=== PATIENT | male | born 1965 | race Caucasian/White ===

== ENCOUNTER → 2019-02-20 | Outpatient (CLI) | payer BC, SELFPAY | END | disposition home or self-care (01) | LOC: LABSPEC 11:38 | PROVIDERS: Family Provider Family Medicine; PCP Family Medicine; Visit Provider Otolaryngology | DX: J02.9 Acute pharyngitis, unspecified (principal) | CPT/HCPCS: 87070 ==

== ENCOUNTER → 2019-05-01 | Outpatient (CLI) | payer BC, SELFPAY ==
[2017-05-02 20:57] VITALS: BMI 24.3
== END | disposition home or self-care (01) ==
LOC: LABSPEC 09:31
PROVIDERS: Family Provider Family Medicine; PCP Family Medicine; Referring Provider Family Medicine; Visit Provider Family Medicine
DX: K11.20 Sialoadenitis, unspecified (principal)
CPT/HCPCS: 87070

== ENCOUNTER 2020-11-28 16:51 | Outpatient (RCR) | payer BC, SELFPAY ==
[2017-05-02 20:57] VITALS: BMI 24.3
[2020-11-28] MEDS: COVID-19 VACC, MRNA(PFIZER)/PF 30 MCG/0.3 ML SYRINGE IM (17:36)
[2020-12-19] MEDS: COVID-19 VACC, MRNA(PFIZER)/PF 30 MCG/0.3 ML SYRINGE IM (17:27)
== END 2020-11-28 23:59 ==
LOC: IMMUN 16:51
PROVIDERS: PCP Family Medicine; Referring Provider Family Medicine; Visit Provider Family Medicine
DX: Z23 Encounter for immunization (principal)
CPT/HCPCS: 0001A; 0002A; 91300

== ENCOUNTER → 2023-04-11 | Outpatient (CLI) | payer BC, SELFPAY | END | disposition home or self-care (01) | LOC: LAB 09:06 | PROVIDERS: PCP Family Medicine; Referring Provider Otolaryngology; Visit Provider Otolaryngology | DX: M27.9 Disease of jaws, unspecified (principal) ==

== ENCOUNTER → 2023-04-18 | Outpatient (CLI) | payer SELFPAY, BC ==
--- NOTE | 2023-04-18 11:56 | US_ITS ---
EXAM: US SOFT TISSUES OF THE NECK CLINICAL INDICATION: NEOPLASM OF UNCERTAIN BEHAVIOR OF THE SUBMANDIBULA TECHNIQUE: Real-time ultrasound scan of the soft tissues of the neck with image documentation. COMPARISON: No relevant prior studies available. FINDINGS: SOFT TISSUES: LEFT SUBMANDIBULAR GLAND: Homogeneous, 2.5 cm x 2.7 cm x 0.8 cm. RIGHT SUBMANDIBULAR GLAND: 2.4 cm x 2.8 cm x 0.6 cm. Homogeneous. RIGHT SUBMANDIBULAR REGION NODES:. No fluid collection or suspicious mass. 0.8 cm x 0.4 cm x 0.4 cm lymph node with fatty hilum. Additional small adjacent benign-appearing lymph node, 4 mm maximum diameter. US/Head/Neck Soft Tissue IMPRESSION: Exam was limited to the region of interest. Symmetric and homogeneous submandibular glands. Small right submandibular region lymph nodes, not pathologic by size or appearance. No suspicious fluid collection or mass. Electronically Signed: Milla Wilburn MD at 9:30 EDT ,
== END | disposition home or self-care (01) ==
PROVIDERS: PCP Family Medicine; Referring Provider Otolaryngology; Visit Provider Otolaryngology
DX: D37.032 Neoplasm of uncertain behavior of the submandibular salivary glands (principal)
CPT/HCPCS: 76536

== ENCOUNTER 2023-10-05 12:18 | Emergency (ER) | payer BC, SELFPAY ==
[2023-10-05 12:18] VITALS: BP 130/76; PULSE 68; RESP 16; TEMP 36; O2SAT 100; BMI 29.3
--- OUTSIDE RECORDS SUMMARY | 2023-10-05 12:33 | XMS RPT_ITS | CCD ---
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 Unavailable Unavailable Bittenbender, Peter Unavailable Unavailable Zografakis, Charly Unavailable Unavailable [place], Haris Unavailable Unavailable Bittenbender, Peter Unavailable Unavailable Zografakis, Charly Unavailable Unavailable [place], Haris Unavailable Unavailable Bittenbender, Peter Unavailable Unavailable Zografakis, Charly Unavailable Unavailable Marge, Hrais Unavailable Unavailable Bittenbender, Peter Unavailable Unavailable [place], Haris Unavailable Unavailable Bittenbender, Peter Unavailable Unavailable Elizabeth, Elizabeth Unavailable Unavailable Zografakis, Charly Unavailable Unavailable Marge, Haris Unavailable Unavailable Bittenbender, Peter Unavailable Unavailable [facility] Unavailable Unavailable [facility] Unavailable Unavailable MARGE FINLEY Unavailable Unavailable Haris Tello MD Primary Care Provider Tushar EDWARDS MD, Marge Unavailable Haris Tello MD Primary Care Provider Tushar EDWARDS MD, Marge Unavailable HARIS TELLO Referring Unavailable HARIS TELLO Primary Care Unavailable HARIS TELLO Attending Unavailable HARIS TELLO Primary Care Unavailable Medications Completed/Discontinued Medications Medication Drug Class(es) Dates Sig (Normalized) Sig (Original) cholecalciferol 0.025 mg oral capsule (3 sources) Vitamin D Start: 04-24-2018 take 1 capsule by mouth once daily Cholecalciferol, Vitamin D3, (VITAMIN D) 1,000 unit cap Take 1 capsule by mouth once daily. 0 04/24/2018 Active Problems Active Problems Problem Classification Problem Date Documented Da te Episodic/Chronic Cancer of head and neck (10 sources) Malignant neoplasm of head, face and neck; Translations: [Malignant neoplasm of tongue, unspecified] Onset: 02-25-2017 02-25-2017 Chronic Deficiency and other anemia (2 sources) Aplastic anemia, unspecified; Translations: [Aplastic anemia, unspecified] Onset: 08-05-2017 Chronic Esophageal disorders (2 sources) Gastro-esophageal reflux disease without esophagitis; Translations: [Gastro-esophageal reflux disease without esophagitis] Onset: 07-31-2017 Chronic Gastroduodenal ulcer (2 sources) 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; Translations: [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] Onset: 07-31-2017 Chronic Gout and other crystal arthropathies (5 sources) Gout, unspecified; Translations: [Gout] Onset: 08-05-2017 12-31-2010 Chronic Hepatitis (2 sources) Nonalcoholic steatohepatitis (KENDALL); Translations: [Nonalcoholic steatohepatitis (KENDALL)] Onset: 06-17-2017 Chronic Hyperplasia of prostate (3 sources) Benign prostatic hyperplasia; Translations: [Benign prostatic hyperplasia without lower urinary tract symptoms] Onset: 04-06-2015 04-06-2015 Chronic Immunizations and screening for infectious disease (6 sources) Patient encounter status; Translations: [Encounter for immunization] Onset: 08-07-2022 Episodic Nausea and vomiting (2 sources) Vomiting, unspecified; Translations: [Vomiting, unspecified] Onset: 07-03-2017 Nutritional deficiencies (2 sources) Unspecified severe protein-calorie malnutrition; Translations: [Unspecified severe protein-calorie malnutrition] Onset: 06-17-2017 Chronic Osteoarthritis (2 sources) Unspecified osteoarthritis, unspecified site; Translations: [Unspecified osteoarthritis, unspecified site] Onset: 08-05-2017 Chronic Other gastrointestinal disorders (6 sources) Gastrostomy status; Translations: [Intestinal bypass and anastomosis status] Onset: 07-03-2017 Chronic Other gastrointestinal disorders (3 sources) Malabsorption - iron; Translations: [Intestinal malabsorption, unspecified] Onset: 04-28-2018 04-28-2018 Chronic Other gastrointestinal disorders (2 sources) Other ascites; Translations: [Other ascites] Onset: 06-17-2017 Other injuries and conditions due to external causes (2 sources) Foreign body in stomach, initial encounter; Translations: [Foreign body in stomach, initial encounter] Onset: 07-03-2017 Other liver diseases (2 sources) Liver disease, unspecified; Translations: [Liver disease, unspecified] Onset: 08-05-2017 Chronic Other nutritional; endocrine; and metabolic disorders (2 sources) Obesity, unspecified; Translations: [Obesity, unspecified] Onset: 08-05-2017 Chronic Other screening for suspected conditions (not mental disorders or infectious disease) (1 source) Encounter for screening for diabetes mellitus; Translations: [Screening for diabetes mellitus] Onset: 08-07-2022 Episodic Unclassified (2 sources) Unspecified intestinal obstruction, unspecified as to partial versus complete obstruction; Translations: [Unsp intestnl obst, unsp as to partial versus complete obst] Onset: 06-17-2017 Unclassified (1 source) Unknown / UNK(Unknown) Onset: 07-08-2017 Past or Other Problems Problem Classification Problem Date Documented Da te Episodic/Chronic Abdominal pain (2 sources) Epigastric pain; Translations: [Epigastric pain] Onset: 08-05-2017 Episodic Acquired foot deformities (3 sources) Acquired cavovarus deformity of foot; Translations: [Other acquired deformities of unspecified foot] Onset: 02-20-2011 02-20-2011 Episodic Calculus of urinary tract (3 sources) Obstruction of pelviureteric junction; Translations: [Calculus of ureter] Onset: 04-18-2015 04-18-2015 Episodic Cancer of other GI organs; peritoneum (2 sources) Personal history of malignant neoplasm of other digestive organs; Translations: [Personal history of malignant neoplasm of digestive organs] Onset: 07-03-2017 Episodic Cancer; other and unspecified primary (2 sources) Personal history of malignant neoplasm of other organs and systems; Translations: [Personal history of malignant neoplasm of organs and systems] Onset: 08-05-2017 Episodic Complications of surgical procedures or medical care (2 sources) Other complications of other bariatric procedure; Translations: [Other complications of other bariatric procedure] Onset: 07-31-2017 Episodic Deficiency and other anemia (4 sources) Iron deficiency anemia; Translations: [Iron deficiency anemia, unspecified] Onset: 04-28-2018 04-28-2018 Episodic Deficiency and other anemia (1 source) Iron deficiency anemia, unspecified; Translations: [Iron deficiency anemia, unspecified iron deficiency anemia type] Onset: 04-28-2018 Episodic Diseases of mouth; excluding dental (3 sources) Radiation-induced xerostomia; Translations: [Disturbances of salivary secretion] Onset: 01-10-2021 01-10-2021 Episodic Disorders of teeth and jaw (3 sources) Sensitive dentin; Translations: [Other specified diseases of hard tissues of teeth] Onset: 01-10-2021 01-10-2021 Episodic Genitourinary symptoms and ill-defined conditions (3 sources) Blood in urine; Translations: [Hematuria, unspecified] Onset: 04-06-2015 04-09-2018 Episodic Nausea and vomiting (2 sources) Nausea with vomiting, unspecified; Translations: [Nausea with vomiting, unspecified] Onset: 07-03-2017 Episodic Nutritional deficiencies (4 sources) Deficiency of multiple nutrient elements; Translations: [Deficiency of nutrient element, unspecified] Onset: 05-08-2017 Episodic Other aftercare (2 sources) 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; Translations: [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] Onset: 08-05-2017 Episodic Other connective tissue disease (3 sources) Enthesopathy; Translations: [Enthesopathy, unspecified] Onset: 03-01-2010 03-01-2010 Episodic Other gastrointestinal disorders (4 sources) Dysphagia, unspecified; Translations: [Bariatric surgery status] Onset: 07-31-2017 Episodic Other gastrointestinal disorders (4 sources) History of bypass of stomach; Translations: [Bariatric surgery status] Onset: 04-09-2018 04-09-2018 Episodic Other gastrointestinal disorders (1 source) Bariatric surgery status; Translations: [Gastric bypass status for obesity] Onset: 04-09-2018 Episodic Other non-traumatic joint disorders (3 sources) Ankle instability; Translations: [Other instability, unspecified ankle] Onset: 02-20-2011 02-20-2011 Episodic Peritonitis and intestinal abscess (2 sources) Peritonitis, unspecified; Translations: [Peritonitis, unspecified] Onset: 06-17-2017 Episodic Residual codes; unclassified (3 sources) At high risk for dental caries; Translations: [Risk for dental caries, high] Onset: 01-10-2021 01-10-2021 Episodic Sprains and strains (3 sources) Late effect of injury; Translations: [Late effect of sprain and strain without mention of tendon injury] Onset: 02-20-2011 02-20-2011 Episodic Unclassified (4 sources) Body mass index (BMI) 23.0-23.9, adult; Translations: [Body mass index (BMI) 24.0-24.9, adult] Onset: 06-17-2017 Episodic Results Test Name Value Interpretation Reference Range Facil ity Vital Signs Date Time Vital Sign Value Performing Clinician Derrick march 08-06-2022 14:54-0500 Body height 193 cm Haris Tello MD Work Phone: [facility] 08-06-2022 14:54-0500 Body weight 111.68 kg Haris Tello MD Work Phone: [facility] 08-06-2022 14:54-0500 Diastolic blood pressure 80 mm[Hg] Haris Tello MD Work Phone: [facility] 08-06-2022 14:54-0500 Heart rate 56 /min Haris Tello MD Work Phone: [facility] 08-06-2022 14:54-0500 SaO2% (BldA) [Mass fraction] 98 % Haris Tello MD Work Phone: [facility] 08-06-2022 14:54-0500 Systolic blood pressure 112 mm[Hg] Haris Tello MD Work Phone: [facility] Encounters Encounter Date Encounter Type Care Provider Facility Start: 01-14-2023 ambulatory Haris Tello MD Work Phone: [facility] Procedures Date Procedure Procedure Detail Performing Clinician Start: 08-06-2022 INFLUENZA VACCINE QUADRIVALENT 6 MO - 64 YRS IM Haris Tello MD Work Phone: Start: 03-26-2021 Colonoscopy Marge Moser MD, MD Work Phone: Start: 05-29-2017 Adult depression scr eening assessment Marge Finley MD, MD Work Phone: Plan of Treatment Date Care Activity Detail Author Start: 03-26-2031 Colonoscopy COLONOSCOPY [facility] Start: 03-26-2031 COLORECTAL CANCER SCREENING COLORECTAL CANCER SCREENING [facility] Start: 07-13-2029 Urine microalbumin profile [facility] Start: 08-07-2027 LIPID SCREEN LIPID SCREEN [facility] Start: 10-16-2025 LIPID SCREEN LIPID SCREEN [facility] Start: 08-07-2025 DIABETES SCREEN DIABETES SCREEN [facility] Start: 10-24-2023 DIABETES SCREEN DIABETES SCREEN [facility] Start: 09-15-2022 DEPRESSION ASSESSMENT DEPRESSION ASSESSMENT [facility] Start: 08-06-2022 End: 10-06-2022 CBC W Auto Differential panel - Blood CBC + DIFF Lab Routine Gastric bypass status for obesity Well adult exam Expected: 08/06/2022, Expires: 10/06/2022 [facility] Work Phone: Immunizations Immunization Date Immunization Notes Care Provider Fa brodie 08-06-2022 influenza, injectabl e, quadrivalent, contains preservative Haris Tello MD Work Phone: [facility] 07-03-2021 Influenza, injectabl e, Madin Beckley Canine Kidney, preservative free, quadrivalent Haris Tello MD Work Phone: [facility] 07-09-2020 influenza, injectabl e, quadrivalent, preservative free Haris Tello MD Work Phone: [facility] 10-12-2019 zoster vaccine recombinant Haris Tello MD Work Phone: [facility] 10-12-2019 zoster vaccine, live Marge Finley MD, MD Work Phone: [facility] Work Phone: 07-13-2019 influenza, injectabl e, quadrivalent, contains preservative Marge Finley MD, MD Work Phone: [facility] Work Phone: 07-13-2019 tetanus toxoid, redu jossie diphtheria toxoid, and acellular pertussis vaccine, adsorbed Marge Finley MD, MD Work Phone: [facility] Work Phone: 04-09-2019 zoster vaccine recombinant Haris Tello MD Work Phone: [facility] 06-24-2018 influenza, injectabl e, quadrivalent, preservative free Marge Finley MD, MD Work Phone: [facility] 04-06-2016 tetanus toxoid, redu jossie diphtheria toxoid, and acellular pertussis vaccine, adsorbed Haris Tello MD Work Phone: [facility] 07-15-2013 influenza virus vaccine, unspecified formulation Marge Finley MD, MD Work Phone: [facility] 06-17-2012 influenza virus vaccine, unspecified formulation Marge Finley MD, MD Work Phone: [facility] 07-13-2010 influenza virus vaccine, unspecified formulation Marge Finley MD, MD Work Phone: [facility] Work Phone: 02-04-2007 tetanus and diphther ia toxoids, adsorbed, preservative free, for adult use (2 Lf of tetanus toxoid and 2 Lf of diphtheria toxoid) Marge Finley MD, MD Work Phone: [facility] Work Phone: Payers Date Payer Category Payer Unknown 2019 Unknown [id number] 2019 Unknown NAI JOVEL PPO [id number] 2019-Present [phone] [id number] [place] [address] PPO [id number] Social History Date Type Detail Facility Tobacco smoking status NHIS Never smoked tobacco [facility] Start: 03-26-2021 End: 08-06-2022 Alcohol intake Current non-drinker of alcohol (finding) [facility] Start: 1965 Sex Assigned At Not on file [facility] Start: 07-30-2022 History SDOH Alcohol Frequency 4 [facility] Start: 07-30-2022 History SDOH Alcohol Std Drinks 1 [facility] Start: 07-30-2022 History SDOH Social Connections Phone 5 [facility] Start: 07-30-2022 History SDOH Social Connections Bahai 2 [facility] Start: 07-30-2022 History SDOH Social Connections Meetings 3 [facility] Start: 07-30-2022 History SDOH Physica l Activity DPW 7 [facility] Start: 07-30-2022 History SDOH Physica l Activity MPS 6 [facility] Start: 07-27-2022 End: 08-06-2022 Exposure to SARS-CoV-2 (event) Not sure [facility] Medical Equipment Procedure Code Equipment Code Equipment Origin al Text Equipment Identifier Dates Stent Uret 6fr 2 6cm W/O Gw Inl - [id number] Start: 04-18-2015 Note 01-14-2023 Telephone Encounter - Jacey Ken Ma - 01/14/2023 2:58 PM EDT Note Date & Type Note Facility 01-14-2023 Miscellaneous Notes Formattin g of this note might be different from the original. Letter printed and ready for pcp to sign Please see where patient would like mailed Jacey Ken Ma documented in this encounter [facility] Progress note 08-06-2022 Note Date & Type Note Facility 08-06-2022 Note HNO ID: [id number] Author: Haris Tello MD Service: ? Author Type: Physician Type: Progress Notes Filed: 08/06/2022 5:33 PM Note Text: Patient presents with: Physical HPI: Patient presents today for office visit for physical and labs. No concerns today. Gets recurrent sores in his nose. Sees ENT and now five years post cancer. He now has to see them annually. He has been released from oncology. Getting dental work due to radiation changes on his teeth. MEDICATIONS: Current Outpatient Medications Medication Sig pediatric multivitamins with iron chewable tablet Take 1 tablet by mouth once daily. Cholecalciferol, Vitamin D3, (VITAMIN D) 1,000 unit cap Take 1 capsule by mouth once daily. No current facility-administered medications for this visit. 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 PAST SURGICAL HISTORY Procedure Laterality Date COLONOSCOPY FLX DX W/COLLJ SPEC WHEN PFRMD 03/26/2021 GASTRECTOMY,PART DISTAL;W/GASTRODUODENOSTO states partial HERNIA REPAIR HX LAPAROSCOPIC GASTRIC BYPASS 05/01/2013 Dr Cook [facility] PAST SURGICAL HISTORY OF right leg hardware PAST SURGICAL HISTORY OF 01/20/2017 Biopsy right tonsil SKIN GRAFT PROCEDURE TONSILLECTOMY HX Left 01/20/2017 FAMILY HISTORY Problem Relation Age of Onset other (lung cancer) Father (electric welder) Diabetes Mother other (CHF) Mother Colon Cancer Other none Prostate Cancer Other none Social History Tobacco Use Smoking status: Never Smokeless tobacco: Never Substance Use Topics Alcohol use: No Drug use: No Reviewed current medications, allergies, past medical history, surgical history, family history and social history today. REVIEW OF SYSTEMS HEENT: Negative for frequent or significant headaches, No changes in hearing or vision, no nose bleeds or other nasal problems NECK: Negative for lumps, goiter, pain and significant neck swelling RESPIRATORY: Negative for cough, hemoptysis, wheezing, COPD, dyspnea or shortness of breath CARDIOVASCULAR: Negative for chest pain, leg swelling, hypertension, CHF or palpitations GI: No nausea, vomiting, or diarrhea : No history of dysuria, frequency or incontinence SKIN: Negative for lesions, rash, and itching All other reviewed and negative other than HPI. HEALTH MAINTENANCE: Reviewed health maintenance issues today and recommended the following in detail. HEPATITIS C SCREENING Never done HIV SCREENING Never done SHINGRIX VACCINE-done. PROSTATE CANCER SCREENING DISCUSSION -Had discussion with patient regarding risks and benefits of prostate screening. Allowed them to decide if they wished to proceed with screening including HA and PSA. DEPRESSION ASSESSMENT Never done COVID-19 VACCINE(4 - Booster for Pfizer series) due on 10/15/2021 INFLUENZA(1) due on 05/16/2022 VITALS: BP 112/80 Pulse (!) 56 Ht 193 cm (6' 4 ) Wt 111.7 kg (246 lb 3.2 oz) SpO2 98% BMI 29.97 kg/m? Last 4 Encounter Wt Readings: Date: Wt: 10/20/2020 108 kg (238 lb) 07/01/2018 89.1 kg (196 lb 8 oz) 06/15/2018 88 kg (194 lb) 04/09/2018 87.5 kg (193 lb) PHYSICAL EXAMINATION: General appearance: Well appearing, alert, in no acute distress, well-hydrated, well nourished. Skin: Skin color, texture, turgor normal, no suspicious rashes or lesions Head: Normocephalic, no masses, lesions, tenderness or abnormalities Neck: Supple, no adenopathy; thyroid symmetric, normal size, no bruits Lungs: Lungs clear to auscultation. No wheezing, rhonchi, rales Heart: RRR without murmur, gallop, or rubs. No ectopy Abdomen: Normal abdominal exam, Abdomen soft, non-tender. Bowel sounds normal. No masses, organomegaly Extremities: No deformities, edema, skin discoloration, clubbing or cyanosis. Good capillary refill. Musculoskeletal: No joint swelling, deformity, or tenderness Peripheral pulses: Normal Neuro: Negative. ASSESSMENT/PLAN: 1. Well adult exam - ICD9: V70.0, ICD10: Z00.00 (primary diagnosis) - Counseled on healthy diet and regular exercise - LIPID PANEL BASIC - COMP METABOLIC PANEL - CBC + DIFF 2. Encounter for immunization - ICD9: V03.89, ICD10: Z23 - INFLUENZA VACCINE QUADRIVALENT 6 MO - 64 YRS IM 3. Special screening examination for viral disease - ICD9: V73.99, ICD10: Z11.59 - HEP C AB IA W/CONF SCRN 4. Screening for HIV (human immunodeficiency virus) - ICD9: V73.89, ICD10: Z11.4 - HIV 1 2 COMBO(AG/AB),WITH REFLEX TO DIFFERENTIATION 5. 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 Gastric bypass status for obesity - ICD9: V45.86, ICD10: Z98.84 - check (more content not included)... [facility] History of Present illness Narrative 08-06-2022 Haris Tello MD - 08/06/2022 2:55 PM EST Note Date & Type Note Facility 08-06-2022 History of Presen t illness Narrative Patient presents with: Physical HPI: Patient presents today for office visit for physical and labs. No concerns today. Gets recurrent sores in his nose. Sees ENT and now five years post cancer. He now has to see them annually. He has been released from oncology. Getting dental work due to radiation changes on his teeth. MEDICATIONS: Current Outpatient Medications Medication Sig pediatric multivitamins with iron chewable tablet Take 1 tablet by mouth once daily. Cholecalciferol, Vitamin D3, (VITAMIN D) 1,000 unit cap Take 1 capsule by mouth once daily. No current facility-administered medications for this visit. 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 PAST SURGICAL HISTORY Procedure Laterality Date COLONOSCOPY FLX DX W/COLLJ SPEC WHEN PFRMD 03/26/2021 GASTRECTOMY,PART DISTAL;W/GASTRODUODENOSTO states partial HERNIA REPAIR HX LAPAROSCOPIC GASTRIC BYPASS 05/01/2013 Dr Cook [facility] PAST SURGICAL HISTORY OF right leg hardware PAST SURGICAL HISTORY OF 01/20/2017 Biopsy right tonsil SKIN GRAFT PROCEDURE TONSILLECTOMY HX Left 01/20/2017 FAMILY HISTORY Problem Relation Age of Onset other (lung cancer) Father (electric welder) Diabetes Mother other (CHF) Mother Colon Cancer Other none Prostate Cancer Other none Social History Tobacco Use Smoking status: Never Smokeless tobacco: Never Substance Use Topics Alcohol use: No Drug use: No Reviewed current medications, allergies, past medical history, surgical history, family history and social history today. REVIEW OF SYSTEMS HEENT: Negative for frequent or significant headaches, No changes in hearing or vision, no nose bleeds or other nasal problems NECK: Negative for lumps, goiter, pain and significant neck swelling RESPIRATORY: Negative for cough, hemoptysis, wheezing, COPD, dyspnea or shortness of breath CARDIOVASCULAR: Negative for chest pain, leg swelling, hypertension, CHF or palpitations GI: No nausea, vomiting, or diarrhea : No history of dysuria, frequency or incontinence SKIN: Negative for lesions, rash, and itching All other reviewed and negative other than HPI. HEALTH MAINTENANCE: Reviewed health maintenance issues today and recommended the following in detail. HEPATITIS C SCREENING Never done HIV SCREENING Never done SHINGRIX VACCINE-done. PROSTATE CANCER SCREENING DISCUSSION -Had discussion with patient regarding risks and benefits of prostate screening. Allowed them to decide if they wished to proceed with screening including HA and PSA. DEPRESSION ASSESSMENT Never done COVID-19 VACCINE(4 - Booster for Pfizer series) due on 10/15/2021 INFLUENZA(1) due on 05/16/2022 VITALS: BP 112/80 Pulse (!) 56 Ht 193 cm (6' 4 ) Wt 111.7 kg (246 lb 3.2 oz) SpO2 98% BMI 29.97 kg/m Last 4 Encounter Wt Readings: Date: Wt: 10/20/2020 108 kg (238 lb) 07/01/2018 89.1 kg (196 lb 8 oz) 06/15/2018 88 kg (194 lb) 04/09/2018 87.5 kg (193 lb) PHYSICAL EXAMINATION: General appearance: Well appearing, alert, in no acute distress, well-hydrated, well nourished. Skin: Skin color, texture, turgor normal, no suspicious rashes or lesions Head: Normocephalic, no masses, lesions, tenderness or abnormalities Neck: Supple, no adenopathy; thyroid symmetric, normal size, no bruits Lungs: Lungs clear to auscultation. No wheezing, rhonchi, rales Heart: RRR without murmur, gallop, or rubs. No ectopy Abdomen: Normal abdominal exam, Abdomen soft, non-tender. Bowel sounds normal. No masses, organomegaly Extremities: No deformities, edema, skin discoloration, clubbing or cyanosis. Good capillary refill. Musculoskeletal: No joint swelling, deformity, or tenderness Peripheral pulses: Normal Neuro: Negative. ASSESSMENT/PLAN: 1. Well adult exam - ICD9: V70.0, ICD10: Z00.00 (primary diagnosis) - Counseled on healthy diet and regular exercise - LIPID PANEL BASIC - COMP METABOLIC PANEL - CBC + DIFF 2. Encounter for immunization - ICD9: V03.89, ICD10: Z23 - INFLUENZA VACCINE QUADRIVALENT 6 MO - 64 YRS IM 3. Special screening examination for viral disease - ICD9: V73.99, ICD10: Z11.59 - HEP C AB IA W/CONF SCRN 4. Screening for HIV (human immunodeficiency virus) - ICD9: V73.89, ICD10: Z11.4 - HIV 1 2 COMBO(AG/AB),WITH REFLEX TO DIFFERENTIATION 5. 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 Gastric bypass status for obesity - ICD9: V45.86, ICD10: Z98.84 - check labs. - LIPID PANEL BASIC - COMP METABOLIC PANEL - CBC + DIFF - HGB A1C - VITAMIN B12 BLOOD - FOLATE SERUM - IRON + TIBC - VITAMIN B1 (THIAMINE), WHOLE BLOOD 7. Iron deficiency anemia, unspecified iron deficiency anemia type - ICD9: 280.9, ICD10: D50.9 - IRON + TIBC 8. Screening for diabetes mellitus - ICD9: V77.1, ICD10: Z13.1 -A1c Haris Tello MD RTO in one year. documented in this encounter [facility] Note 01-03-2022 Telephone Encounter - Elif Gant RN - 01/03/2022 10:02 AM EDT Note Date & Type Note Facility 01-03-2022 Miscellaneous Notes Copy of completion note mailed to pt per his request. documented in this encounter [facility] History of Past illness Narrative 01-09-2010 Note Date & Type Note Facility documented as of this encounter (statuses as of 01/03/2022) [facility] History of Past illness Narrative 01-09-2010 Note Date & Type Note Facility documented as of this encounter (statuses as of 08/06/2022) [facility] History of Past illness Narrative 01-09-2010 Note Date & Type Note Facility documented as of this encounter (statuses as of 01/15/2023) [facility] Evaluation note Note Date & Type Note Facility documented in this encounter [facility] Summary Purpose Family History No Family History Records FoundNo Family History Records FoundNo Family History Records FoundNo Family History Records Found Advance Directives Documents on File Type Date Recorded Patient Mri Manager Expl anation Advance Directive(s) 03/26/2021 8:04 AM Advance Directive(s) 01/10/2021 12:35 PM Additional Source Comments (unrecognized sect ion and content) No Status Records FoundNo Status Records FoundNo Status Records FoundNo Status Records Found INFORMATION SOURCE (unrecogn ized section and content) DATE CREATED AUTHOR AUTHOR'S ORGANIZ ATION 03/13/2018 [facility] DATE CREATED AUTHOR AUTHOR'S ORGANIZ ATION 03/13/2018 [facility] DATE CREATED AUTHOR AUTHOR'S ORGANIZ ATION 08/12/2022 [facility] Source Comments (unrecognize d section and content) In the event this informatio n is protected by the Federal Confidentiality of Alcohol and Drug Abuse Patient Records regulations: The Federal rules restrict any use of the information to criminally investigate or prosecute any alcohol or drug abuse patient.[facility] the event this information is protected by the Federal Confidentiality of Alcohol and Drug Abuse Patient Records regulations: The Federal rules restrict any use of the information to criminally investigate or prosecute any alcohol or drug abuse patient.[facility] the event this information is protected by the Federal Confidentiality of Alcohol and Drug Abuse Patient Records regulations: The Federal rules restrict any use of the information to criminally investigate or prosecute any alcohol or drug abuse patient.[facility] Care Teams (unrecognized sec tion and content) 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 Start Date End Date Haris Tello MD [address], [place] [phone] PCP - General Family Medicine 06/17/12 Marge Finley MD, [address], [place] [id number] Physician Radiation Oncology 01/31/17 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 This clinical summary was aggregated from multiple sources. Caution should be exercised in using it in the provision of clinical care. This summary normalizes information from multiple sources, and as a consequence, information in this document may materially change the coding, format and clinical context of patient data. In addition, data may be omitted in some cases. CLINICAL DECISIONS SHOULD BE BASED ON THE PRIMARY CLINICAL RECORDS. [employer] [facility]. provides no warranty or guarantee of the accuracy or completeness of information in this document.
--- NOTE | 2023-10-05 12:34 | EX.ED.GENINJ ---
HPI <FARRAH Costello - Last Filed: 10/05/23 16:22> History of Present Illness Chief Complaint: Laceration Narrative Narrative: Is presenting today due to a laceration to his right thumb that he got this afternoon. He reports that he was trying to get a utility knife out of its package and the knife accidentally cut him. Tetanus is not up-to-date. He is not on any blood thinners. He is right-handed. He denies any other injury. PFSH <FARRAH Costello - Last Filed: 10/05/23 16:22> PFSH Home Medications acetaminophen 650 mg/20.3 mL oral solution 650 mg G-tube Q4H PRN PRN Pain 05/02/17 [History Last Taken Unknown] morphine concentrate 100 mg/5 mL (20 mg/mL) oral solution 0.5 - 1 ml G-tube Q4H PRN PRN Pain 05/02/17 [History Last Taken Unknown] esomeprazole magnesium 40 mg granules delayed release for susp (Nexium Packet) 40 mg PO .DAILY ##30 05/03/17 [Rx Last Taken Unknown] oxycodone 20 mg/mL oral concentrate 5 - 10 mg (0.25 - 0.5 mL) PO Q4H PRN PRN Pain #10 mL 05/03/17 [Rx Last Taken Unknown] Allergy/AdvReac Type Severity Reaction Status Date / Time No Known Allergies Allergy Verified 05/02/17 20:57 Social History Smoking Status: Never smoker ROS <FARRAH Costello - Last Filed: 10/05/23 16:22> ROS ED Constitutional Constitutional ED: Denies chills or fever(s) Cardiovascular Cardiovascular: Denies chest pain Respiratory/Chest Respiratory/Chest: Denies cough or dyspnea Gastrointestinal Gastrointestinal: Denies abdominal pain, nausea or vomiting Musculoskeletal Musculoskeletal: Denies arthralgias or myalgias Integumentary Reports laceration EXAM <FARRAH Costello - Last Filed: 10/05/23 16:22> Physical Exam Const Vital Signs: 10/05/23 12:18 Temperature 96.8 F L Temperature Source Temporal Pulse Rate 68 Respiratory Rate 16 Blood Pressure 130/76 H Blood Pressure Mean 94 Pulse Ox 100 Oxygen Delivery Method Room Air Positive well nourished, well developed and no apparent distress General Appearance ED: well developed HEENT Reports normocephalic and head/scalp atraumatic Mouth ED: Yes moist mucous membranes normal Eyes PERRL and EOMs intact bilaterally Neck full ROM and supple Chest Wall inspection of chest normal Resp normal respiratory effort and clear to auscultation bilaterally Cardio regular rate and regular rhythm GI soft to palpation, non-tender, non-distended and no masses Back/Spine normal ROM and normal to inspection Extremity full ROM Extremity Narrative: 9 cm linear full-thickness laceration along the lateral aspect of the R thumb and thenar eminence. Full flexion and extension at the MCP and IP joint of the right first finger. Radial pulse 2+, good capillary refill, sensation intact. Neuro oriented x3, CN's II-XII intact bilaterally, moves all extremities, no focal motor deficits and no sensory deficits noted Sensorium / Orientation: awake and alert Psych mental status grossly normal and thought process normal <Dr. Radha Casper, DO - Last Filed: 10/17/23 10:48> Physical Exam Const Vital Signs: 10/05/23 12:18 Temperature 96.8 F L Temperature Source Temporal Pulse Rate 68 Respiratory Rate 16 Blood Pressure 130/76 H Blood Pressure Mean 94 Pulse Ox 100 Oxygen Delivery Method Room Air PROC <FARRAH Costello - Last Filed: 10/05/23 16:22> Procedures Lacerations laceration: Length: 3.54 in Depth: Sub Q Shape: Linear Prep: Chlorhexadine Laceration repair: Irrigated, Lidocaine with epi, Skin sutures and Wound explored Irrigated (ml): 250 Number of Sutures/Pooja: 12 Suture Information: Ethilon, Simple and 5-0 MDM <FARRAH Costello - Last Filed: 10/05/23 16:22> [facility] Narrative Medical decision making narrative: Patient presenting with a laceration to his right thumb. This will require sutures. Tetanus updated here. Laceration was cleaned and copiously irrigated with sterile saline, stitches were placed, patient tolerated procedure well. Wound was bandaged with bacitracin ointment. Patient has been educated on wound care and is to have stitches removed in 7-10 days. He will be discharged home stable condition and is comfortable with plan. Has been given return instructions. <Dr. Radha Casper, DO - Last Filed: 10/17/23 10:48> [facility] MDM Narrative Medical decision making narrative: Patient presenting with a laceration to his right thumb. This will require sutures. Tetanus updated here. Laceration was cleaned and copiously irrigated with sterile saline, stitches were placed, patient tolerated procedure well. Wound was bandaged with bacitracin ointment. Patient has been educated on wound care and is to have stitches removed in 7-10 days. He will be discharged home stable condition and is comfortable with plan. Has been given return instructions. I have personally performed a face to face assessment of the patient and have reviewed the RUIZ Note. I performed a substantive portion of the visit including all aspects of the following. My chavez findings include: Patient is a [id number] male presenting with laceration to the base of his right thumb. No active bleeding at this time. No obvious tendon injury. Overall clean wound I do not think requires antibiotic prophylaxis at this time. I do not think imaging is indicated as low suspicion for foreign body based on mechanism of injury. Localized wound care applied, tetanus updated and suture repair performed by PA. Patient given wound precautions and counseled on sutures removed in 7 to 10 days. Verbalized agreement understand this plan. Discharged home in stable and improved condition. Other additions or changes: [None] Discharge Plan Triage Chief Complaint: Laceration ED Midlevel Provider: Sherly Chilel ED Provider: Radha Casper Dx/Rx/DC Orders Clinical Impression: Laceration Instructions: ED Laceration, All Closures Prescriptions: No Action morphine concentrate 100 MG/5 ML solution 0.5 - 1 ml G-tube Q4H PRN PRN (Reason: Pain) Patient Comments: TAKE 0.5-1 ML BY MOUTH EVERY 4 HOURS NEEDED acetaminophen 650 MG/20 ML solution 650 mg G-tube Q4H PRN PRN (Reason: Pain) oxycodone 10 MG/0.5 ML concentrate 5 - 10 mg PO Q4H PRN PRN (Reason: Pain) Qty: 10 0RF esomeprazole magnesium [Nexium Packet] [address] brenner susp in packet 40 mg PO .DAILY Qty: 30 0RF Primary Care Provider: Joe Bird Referrals: Joe Bird MD [Primary Care Provider] - 7 Days for suture removal Activity Restrictions/Additional Instructions: Keep area clean and covered with antibiotic ointment or Vaseline and a bandage. Follow-up with PCP or return for any signs of infection. Disposition Disposition: Home, Self Care Discharge Date/Time: 10/05/23 13:43
[2023-10-05] MEDS: Lidocaine 1% /Epi 1:100 (20ml) 20 ML Vial 10 ML INFILT (12:49)
[2023-10-05] MEDS: Diphth,Pertuss(Acell),Tet Vac 0.5 ML Vial IM (12:49)
== END 2023-10-05 13:43 | disposition home or self-care (01) ==
PROVIDERS: Emergency Provider Emergency Medicine; PCP Family Medicine; Visit Provider Emergency Medicine
DX: S61.011A Laceration without foreign body of right thumb without damage to nail, initial encounter (principal); W26.0XXA Contact with knife, initial encounter; Z23 Encounter for immunization
CPT/HCPCS: 12004; 90715; 99283